=== PATIENT | female | born 1935 | race Caucasian/White ===

== ENCOUNTER → 2021-02-17 | Day surgery (SDC) | payer MEDICARE, BC ==
[~2021-02-17] VITALS: Ht 152.4 cm; Wt 60.0 kg
[~2021-02-17] MED LIST: APIX5TAB PO; FURO20TA3 PO; IV RINGERS,LACTATED 1000ML 1,000 ML IV SCH; LIDOCAINE 2% PF 5 ML VIAL. ONE; METO50TA6 PO; MV-M1TAB36 PO; OMEP20CA16 PO; PROPOFOL 10 MG/ML (20ML) VIAL. IV ONE; RAMI5CAP33 PO; ePHEDrine PF IN SALINE 50 MG/10 ML SYRINGE. IV ONE
[2021-02-17 08:09] VITALS: BP 132/67
[2021-02-17 09:05] VITALS: BP 138/74
--- NOTE | 2021-02-17 15:53 | HP ---
ADMIT DATE: 02/17/2021 UPDATED HISTORY AND PHYSICAL REASON: Heartburn. HISTORY OF PRESENT ILLNESS: An 85-year-old female whose past medical history is significant for hypertension, gastroesophageal reflux disease is seen with increased symptoms within the substernal area, worsened when lying down. Risk factors for reflux are positive for caffeine, but negative for alcohol and nicotine. She has also had increased sinus drainage and hoarseness. Cardiology tested with oxygen levels were normal. With continued issues, she is here today for further evaluation. PAST MEDICAL HISTORY: Heartburn, hypertension. ALLERGIES: PENICILLIN, DIPHENHYDRAMINE, HYDROCHLOROTHIAZIDE, IODINE AND MELOXICAM. MEDICATIONS: Include furosemide, metoprolol, Ocuvite eyedrops and omeprazole 20 mg daily. FAMILY HISTORY: Noncontributory. SOCIAL HISTORY: She is a nonsmoker, nondrinker at this time. PAST SURGICAL HISTORY: Significant for breast surgery, eye surgery, joint replacement surgery and reflux surgery. PHYSICAL EXAMINATION: GENERAL: Reveals a well-nourished, well-developed female, alert, cooperative, no acute distress. VITAL SIGNS: Temperature is 98.5, pulse 107. LUNGS: Clear. CARDIOVASCULAR: Reveals an S1, S2, without S3, S4 or appreciable murmur. ABDOMEN: Reveals a soft abdomen, normal bowel sounds, without appreciable hepatosplenomegaly. EXTREMITIES: Reveals no cyanosis, clubbing or edema. IMPRESSION: Heartburn, etiology to be determined. Differential includes achalasia, malignancy, gastroparesis, hiatal hernia. Therefore, recommend upper endoscopy, possible biopsy and/or dilatation. Risks and benefits of procedure, including risk of hemorrhage and perforation during the operation have been discussed. The patient is willing to proceed at this time. [facility]: Junior TID: [id number]
--- NOTE | 2021-02-20 19:18 | PATHOLOGY ---
[facility] Accession Number: [id number] . 01 Material submitted: . esophagus - DISTAL ESOPHAGUS BIOPSY. Modifiers: distal . 01 Clinical history: . ABDOMINAL PAIN EGD HEARTBURN . 02 Diagnosis: Esophageal biopsies, distal esophagus: - Reflux esophagitis. (JPM:yoselin; 02/20/2021) S 02/20/2021 1530 Local . 02 Comment: Sections of the distal esophageal biopsy reveal segments of tangentially oriented, hyperplastic squamous esophageal mucosa. The findings are consistent with reflux esophagitis. There is no evidence of Neal's change, dysplasia, or malignancy. (JPM:yoselin; 02/20/2021) . 02 Electronically signed: . Cruz Garcia MD, Pathologist NPI- [id number] . 01 Gross description: . Received in formalin labeled "Bety Ramsey, distal esophagus biopsy" are multiple helm-brown soft tissue fragments measuring in aggregate 1.9 x 0.5 x 0.3 cm. The specimen is submitted entirely in A1. ([facility]; 02/18/2021) . GZA/GZA 02/20/2021 1528 Local . 02 Pathologist provided ICD-10: K21.00 . 02 CPT . 556725 Specimen Comment: A courtesy copy of this report has been sent to [phone], [phone] Specimen Comment: [id number] Specimen Comment: Report sent to / DR HAM Performed at: 01 [facility] [address], [place], [place] [id number] MD Marciano Rushing MD Phone: [phone] Performed at: 02 [facility] [place] [id number] MD Cruz Garcia MD Phone: [phone]
== END | disposition home or self-care (01) ==
LOC: SURG 07:02
PROVIDERS: ATTEND Internal Medicine Gastroenterology
DX: R12 Heartburn (principal); K21.00 Gastro-esophageal reflux disease with esophagitis, without bleeding; K31.89 Other diseases of stomach and duodenum; K31.7 Polyp of stomach and duodenum; I11.0 Hypertensive heart disease with heart failure; I50.9 Heart failure, unspecified; E78.00 Pure hypercholesterolemia, unspecified; M19.90 Unspecified osteoarthritis, unspecified site; I48.91 Unspecified atrial fibrillation; Z90.49 Acquired absence of other specified parts of digestive tract; Z85.3 Personal history of malignant neoplasm of breast; Z98.890 Other specified postprocedural states; Z79.899 Other long term (current) drug therapy; Z85.828 Personal history of other malignant neoplasm of skin; Z88.0 Allergy status to penicillin; Z88.1 Allergy status to other antibiotic agents; Z91.041 Radiographic dye allergy status; Z88.8 Allergy status to other drugs, medicaments and biological substances
CPT/HCPCS: 43239; J2704